=== PATIENT | male | born 1955 | race Hispanic/Latino ===

== ENCOUNTER 2017-07-30 09:47 | Observation (INO) | payer BC ==
[2017-07-30 09:49] VITALS: BMI 26.5
--- NOTE | 2017-07-30 10:38 | ED PDOC ---
HPI: Chest Pain Time Seen by Provider: 07/30/17 10:05 Chief Complaint (Nursing): Chest Pain Chief Complaint (Provider): Chest Tightness History Per: Patient History/Exam Limitations: no limitations Onset/Duration Of Symptoms: Days (x2) Current Symptoms Are (Timing): Still Present Quality: Tightness Additional Complaint(s): Noble Green Jr is a 62 year old male with a past medical history of asthma, atrial fibrillation, and hypertension, who presents complaining of chest tightness since yesterday. Reports tightness is constant, and associated with non-productive cough. Denies fever, leg swelling, or calf pain. No recent long distance travel. Reports he took his Cardizem and Xarelto today as prescribed. PMD: Provider TBD Past Medical History Reviewed: Historical Data, Nursing Documentation, Vital Signs Vital Signs: Last Vital Signs Temp 98.8 F 07/30/17 10:25 Pulse 83 07/30/17 10:17 Resp 14 07/30/17 10:17 BP 120/77 07/30/17 10:17 Pulse Ox 96 07/30/17 15:37 - Medical History PMH: Asthma, Atrial Fibrillation, HTN - Surgical History Surgical History: No Surg Hx - Family History Family History: States: Unknown Family Hx - Social History Current smoker - smoking cessation education provided: No Alcohol: Social Drugs: Denies - Allergies Allergies/Adverse Reactions: Allergies Allergy/AdvReac Type Severity Reaction Status Date / Time No Known Allergies Allergy Verified 06/19/17 09:00 SURYA Risk Score for UA/NSTEMI - SURYA Risk Score Age > 64: NO 3 or more CAD Risk Factors: YES Known CAD (Stenosis greater than 50%): NO Aspirin use in past 7 days: NO Severe Angina: NO EKG ST changes greater than 0.5mm: NO Positive Cardiac Marker: NO SURYA Score: 1 Risk %: 5% Review of Systems ROS Statement: Except As Marked, All Systems Reviewed And Found Negative Constitutional: Negative for: Fever Cardiovascular: Positive for: Other (chest tightness). Negative for: Chest Pain Respiratory: Positive for: Cough. Negative for: Sputum Musculoskeletal: Negative for: Other (calf pain, leg swelling) Physical Exam - Reviewed Nursing Documentation Reviewed: Yes Vital Signs Reviewed: Yes - Physical Exam Appears: Positive for: Non-toxic, No Acute Distress Head Exam: Positive for: ATRAUMATIC, NORMAL INSPECTION, NORMOCEPHALIC Skin: Positive for: Normal Color, Warm, Dry Eye Exam: Positive for: EOMI, Normal appearance, PERRL Neck: Positive for: Normal, Painless ROM, Supple Cardiovascular/Chest: Positive for: Regular Rate, Rhythm, Chest Non Tender. Negative for: Murmur Respiratory: Positive for: Normal Breath Sounds. Negative for: Accessory Muscle Use, Rhonchi, Wheezing, Respiratory Distress Gastrointestinal/Abdominal: Positive for: Normal Exam, Soft. Negative for: Tenderness Extremity: Positive for: Normal ROM. Negative for: Pedal Edema, Calf Tenderness , Deformity Neurologic/Psych: Positive for: Alert, Oriented (x3) - Laboratory Results Result Diagrams: 07/30/17 11:59 07/30/17 13:24 - ECG O2 Sat by Pulse Oximetry: 96 (RA) Pulse Ox Interpretation: Normal Medical Decision Making Medical Decision Making: Initial Impression: Asthma, pulmonary embolism, bronchitis, pneumonia Time: 10:32 Initial Plan: --EKG --CMP --Troponin I --CBC w/ differential --PTT --Prothrombin time --Blood culture --Chest x-ray --Pending CT Angio Chest [PE protocol] --Reevaluation Time: 12:31 CHEST X-RAY: FINDINGS: LUNGS: No active pulmonary disease. PLEURA: No significant pleural effusion identified, no pneumothorax apparent. CARDIOVASCULAR: No radiographic findings to suggest acute or significant cardiovascular disease. OSSEOUS STRUCTURES: No significant abnormalities. VISUALIZED UPPER ABDOMEN: Normal. OTHER FINDINGS: None. IMPRESSION: No active disease. Labs reviewed: Troponin negative. PTT is 23.3. Otherwise labs are wnl. Time: 15:24 CT ANGIO CHEST: FINDINGS: PULMONARY ARTERIES: Unremarkable. No pulmonary embolism. AORTA: No acute findings. No thoracic aortic aneurysm. LUNGS: Unremarkable. No nodule, mass or pulmonary consolidation. PLEURAL SPACES: Unremarkable. No effusion or pneuomothorax. HEART: Cardiac size appears upper limits of normal. No significant pericardial effusion. LYMPH NODES: No lymphadenopathy. BONES, CHEST WALL: Unremarkable. No fracture or destructive lesion OTHER FINDINGS: Small hiatal hernia is encountered. IMPRESSION: Unremarkable CT pulmonary angiogram. No pulmonary embolus. No definite infiltrate, pleural effusion or pneumothorax. Cardiac size at upper limits normal. Scribe Attestation: Documented by Inocencia Reyes, acting as a scribe for Apolonia Huang MD Provider Scribe Attestation: All medical record entries made by the Scribe were at my direction and personally dictated by me. I have reviewed the chart and agree that the record accurately reflects my personal performance of the history, physical exam, medical decision making, and the department course for this patient. I have also personally directed, reviewed, and agree with the discharge instructions and disposition. Disposition - Disposition Forms: [employer] (Filipino)
[2017-07-30 12:06] LABS: BASO % 0.3 % (0.0-2.0); EOS # 0.1 K/uL (0.0-0.7); EOS % 1.2 % (0.0-4.0); HEMOGLOBIN 13.7 g/dL (12.0-18.0); LYMPH # 0.5 K/uL (1.0-4.3); LYMPH % 5.7 % (20.0-40.0); MEAN CELL VOLUME 87.7 fl (80.0-94.0); MEAN CORPUSCULAR HGB CONC 33.1 g/dL (33.0-37.0); MEAN PLATELET VOLUME 9.6 fl (7.2-11.7); MONO # 0.7 K/uL (0.0-0.8); MONO % 8.3 % (0.0-10.0); NEUT # 6.8 K/uL (1.8-7.0); NEUT % 84.5 % (50.0-75.0); NRBC % 0.1 % (0.0-0.0); PLATELET COUNT 222 K/uL (130-400); RBC 4.71 Mil/uL (4.40-5.90); RED CELL DISTRIBUTION WIDTH 13.9 % (11.5-14.5); WHITE BLOOD COUNT 8.1 K/uL (4.8-10.8)
[2017-07-30 12:18] LABS: PARTIAL THROMBOPLASTIN TIME 23.3 Seconds (25.6-37.1); PROTHROMBIN TIME 11.3 Seconds (9.8-13.1)
--- NOTE | 2017-07-30 12:33 | RAD ---
HISTORY: Chest tightness portable COMPARISON: No prior. FINDINGS: LUNGS: No active pulmonary disease. PLEURA: No significant pleural effusion identified, no pneumothorax apparent. CARDIOVASCULAR: No radiographic findings to suggest acute or significant cardiovascular disease. OSSEOUS STRUCTURES: No significant abnormalities. VISUALIZED UPPER ABDOMEN: Normal. OTHER FINDINGS: None. IMPRESSION: No active disease.
[2017-07-30] MEDS ORDERED: Iodixanol 320 MG/ML 100 ML BOTTLE IV ONE (12:36)
[2017-07-30] MEDS ORDERED: Sodium Chloride 0.9% 50 ML IV ONE (12:36)
[2017-07-30 13:50] LABS: ALB/GLOB RATIO 1.2 (1.0-2.1); ALBUMIN 4.4 g/dL (3.5-5.0); ALT/SGPT 34 U/L (21-72); AST/SGOT 40 U/L (17-59); BLOOD UREA NITROGEN 17 mg/dl (9-20); CALCIUM 9.2 mg/dL (8.4-10.2); GFR AFRICAN-AMERICAN > 60; GFR NON-AFRICAN AMERICAN > 60
[2017-07-30 14:07] LABS: LYMPHOCYTE 9 % (20-50); MONOCYTE 8 % (0-10); NEUTROPHIL 83 % (42-75); PLATELET ESTIMATE NORMAL (NORMAL); TOTAL CELLS COUNTED 100
--- NOTE | 2017-07-30 15:25 | CT ---
PROCEDURE: CT Chest with contrast (Pulmonary Angiogram) HISTORY: Chest tightness, a fib COMPARISON: Portable chest 07/30/2017. TECHNIQUE: Axial computed tomography images were obtained of the chest in the pulmonary arterial phase of enhancement. Coronal and sagittal reformatted images were created and reviewed. Intravenous contrast dose: Visipaque 320, 99 cc Radiation dose: Total exam DLP = 442.31 mGy-cm. This CT exam was performed using one or more of the following dose reduction techniques: Automated exposure control, adjustment of the mA and/or kV according to patient size, and/or use of iterative reconstruction technique. FINDINGS: PULMONARY ARTERIES: Unremarkable. No pulmonary embolism. AORTA: No acute findings. No thoracic aortic aneurysm. LUNGS: Unremarkable. No nodule, mass or pulmonary consolidation. PLEURAL SPACES: Unremarkable. No effusion or pneuomothorax. HEART: Cardiac size appears upper limits of normal. No significant pericardial effusion. LYMPH NODES: No lymphadenopathy. BONES, CHEST WALL: Unremarkable. No fracture or destructive lesion OTHER FINDINGS: Small hiatal hernia is encountered. IMPRESSION: Unremarkable CT pulmonary angiogram. No pulmonary embolus. No definite infiltrate, pleural effusion or pneumothorax. Cardiac size at upper limits normal.
[2017-07-30] MEDS ORDERED: Albuterol-Ipratrop 3 mg / 0.5 (3 ml) UD INH STA (16:21)
[2017-07-30] MEDS ORDERED: Albuterol-Ipratrop 3 mg / 0.5 (3 ml) UD ONE (16:48)
--- NOTE | 2017-07-30 17:23 | CP.PCM.HP ---
History of Present Illness - History of Present Illness History of Present Illness: 62 yo ,m, PMhx/o Asthma, HTN, Afib (06/2017) presents to ED c/o chest tightness started 2 days ago associated with occs dry cough that sometimes is productive yellowish color since the beginning of July. Patient reports that chest tightness started yesterday about 5 pm and improved with Qvar 2 puff, but today it started again in the morning while he was buying his groceries and it was not alleviated with Rubitussin and Qvar spray and it was associated with mild SOB and lightheadedness. He denies chest pain, palpitation, headache, dizziness, weakness, hxo DVT, immobilization. Pt reports he saw Metal Polisher about 2 weeks ago and he was advised to use Qvar TID. He reports he never has seen a Reel Cart Operator before in the past and never had PFT test done. He denies hx/o smoker but states that smoke when he was a teenager. PMD: CF. last visit 06/2017 Dr Hurley. Allergies: NKDA MEds: Diltiazem 120 mg daily, Xarelto 20 mg QPM, Qvar 1 puff Q12, Albuterol spuff not using now. Fhx: noncontributory PShx: +ETOH occs, neg rect drugs, former smoker when teenager at age 19 , 5 cig/ day x 1 year ED Course VS: normal PD: Lungs CTA, no rhonchi, no wheezing, no rales Labs: cbc, cmp nl.troponin neg x 1 Imaging: CT angio chest: no pulmonary embolism. normal CXR: no active disease. EKG sinus rhtym with PAC Treatment: Duoneb Present on Admission - Present on Admission Any Indicators Present on Admission: No History of DVT/PE: No History of Uncontrolled Diabetes: No Urinary Catheter: No Decubitus Ulcer Present: No Review of Systems - Constitutional Constitutional: As Per HPI - Cardiovascular Cardiovascular: As Per HPI Additional comments: chest tightness - Respiratory Respiratory: As Per HPI, Cough, Dyspnea Past Patient History - Past Social History Alcohol: Social Drugs: Denies - CARDIAC Hx Atrial Fibrillation: Yes Hx Hypertension: Yes - PULMONARY Hx Asthma: Yes - PSYCHIATRIC Hx Substance Use: No - SURGICAL HISTORY Hx Surgeries: No - ANESTHESIA Hx Anesthesia: No Meds Allergies/Adverse Reactions: Allergies Allergy/AdvReac Type Severity Reaction Status Date / Time No Known Allergies Allergy Verified 06/19/17 09:00 Physical Exam - Constitutional Appears: No Acute Distress - Head Exam Head Exam: ATRAUMATIC, NORMOCEPHALIC - Eye Exam Eye Exam: Normal appearance - ENT Exam ENT Exam: Mucous Membranes Moist - Neck Exam Neck exam: Positive for: Normal Inspection - Respiratory Exam Respiratory Exam: Clear to Auscultation Bilateral. absent: Rales, Rhonchi, Wheezes, Stridor - Cardiovascular Exam Cardiovascular Exam: REGULAR RHYTHM, +S1, +S2 - GI/Abdominal Exam GI & Abdominal Exam: Normal Bowel Sounds, Soft. absent: Guarding, Rebound - Extremities Exam Extremities exam: Positive for: normal inspection. Negative for: pedal edema - Neurological Exam Neurological exam: Alert, Oriented x3 - Psychiatric Exam Psychiatric exam: Normal Affect, Normal Mood - Skin Skin Exam: Rash Additional comments: B/L internal side of arms with erythematous chronic rash not scaly. Results - Vital Signs Recent Vital Signs: Last Vital Signs Temp 98.8 F 07/30/17 10:25 Pulse 82 07/30/17 10:17 Resp 14 07/30/17 10:17 BP 120/77 07/30/17 10:17 Pulse Ox 96 07/30/17 15:45 - Labs Result Diagrams: 07/30/17 11:59 07/30/17 13:24 Labs: Laboratory Results - last 24 hr 07/30/17 07/30/17 07/30/17 11:59 11:59 13:24 WBC 8.1 RBC 4.71 Hgb 13.7 Hct 41.3 MCV 87.7 MCH 29.0 MCHC 33.1 RDW 13.9 Plt Count 222 MPV 9.6 Neut % (Auto) 84.5 H Lymph % (Auto) 5.7 L [place] % (Auto) 8.3 Eos % (Auto) 1.2 Baso % (Auto) 0.3 Neut # 6.8 Lymph # 0.5 L [place] # 0.7 Eos # 0.1 Baso # 0.0 Neutrophils % (Manual) 83 H Lymphocytes % (Manual) 9 L Monocytes % (Manual) 8 Platelet Estimate Normal RBC Morphology Normal PT 11.3 INR 1.0 APTT 23.3 L Sodium 143 Potassium 3.8 Chloride 103 Carbon Dioxide 29 Anion Gap 15 BUN 17 Creatinine 0.7 L Est GFR ( Amer) > 60 Est GFR (Non-Af Amer) > 60 Random Glucose 93 Calcium 9.2 Total Bilirubin 0.6 AST 40 ALT 34 Alkaline Phosphatase 75 Troponin I 0.0120 Total Protein 8.0 Albumin 4.4 Globulin 3.6 Albumin/Globulin Ratio 1.2 Assessment & Plan - Assessment and Plan (Free Text) Plan: 62 yo ,m, PMhx/o Asthma, HTN, Afib (06/2017) presents to ED c/o chest tightness started 2 days ago, admitted for chest tightness for observation in telemetry Assessment/Plan 1) Chest tightness -no chest pain, admited to r/o ACS -Admit telemetry -EKG sinus rhythm, troponin x 1 neg -f/u trop x 2, ECG in the morning -Duoneb PRN SOB -Tylenol PRN pain 2) URI -possible viral etiology -symptomatic treatment -CXR normal -CT chest no infiltrated 3) Asthma exacerbation -recent URI, chest tightness -no wheezing, but pt was treated in Ed and has been using Qvar at home. -Qvar ordered for tomorrow morning -Duoneb q4h PRN for SOB 4) Hx/o Atrial Fibrillation -1 episode of A fib 06/25/17 -on sinus rhytm today, asymptomatic -Continue Xarelto 20 mg QHS 5) HTN -c/w Diltiazem 6) DVT prophylaxis -Pt on Xarelto
--- NOTE | 2017-07-30 17:23 | CP.PCM.PN ---
Objective - Vital Signs/Intake and Output Vital Signs (last 24 hours): Temp Pulse Resp BP Pulse Ox 98.8 F 82 14 120/77 96 07/30/17 10:25 07/30/17 10:17 07/30/17 10:17 07/30/17 10:07/30/17 15:45 - Medications Medications: Current Medications Acetaminophen (Tylenol 325mg Tab) 650 mg PO Q6 PRN PRN Reason: Pain, moderate (4-7) Albuterol/Ipratropium (Duoneb 3 Mg/0.5 Mg (3 Ml) Ud) 3 ml INH RQ4 PRN PRN Reason: Shortness of Breath Home Med (Diltiazem Hcl [Diltiazem Er]) 120 mg PO DAILY ALISON Rivaroxaban (Xarelto) 20 mg PO QPM ALISON PRN Reason: Protocol - Labs Labs: 07/30/17 11:59 07/30/17 13:24 PT 11.3 Seconds (9.8-13.1) 07/30/17 11:59 INR 1.0 (0.9-1.2) 07/30/17 11:59 APTT 23.3 Seconds (25.6-37.1) L 07/30/17 11:59
[2017-07-30] MEDS: Albuterol-Ipratrop 3 mg / 0.5 (3 ml) UD INH PRN (23:19)
[2017-07-31 06:17] LABS: ALB/GLOB RATIO 1.2 (1.0-2.1); ALT/SGPT 36 U/L (21-72); AST/SGOT 35 U/L (17-59); BLOOD UREA NITROGEN 14 mg/dl (9-20); CALCIUM 9.1 mg/dL (8.4-10.2); GFR AFRICAN-AMERICAN > 60; GFR NON-AFRICAN AMERICAN > 60; HDL CHOLESTEROL 62 MG/DL (30-70)
[2017-07-31 06:24] LABS: BASO % 0.5 % (0.0-2.0); EOS % 0.5 % (0.0-4.0); HEMOGLOBIN 13.5 g/dL (12.0-18.0); LYMPH # 0.7 K/uL (1.0-4.3); LYMPH % 11.6 % (20.0-40.0); MEAN CELL VOLUME 86.8 fl (80.0-94.0); MEAN CORPUSCULAR HEMOGLOBIN 29.2 pg (27.0-31.0); MEAN CORPUSCULAR HGB CONC 33.6 g/dL (33.0-37.0); MEAN PLATELET VOLUME 10.2 fl (7.2-11.7); MONO % 15.8 % (0.0-10.0); NEUT # 4.5 K/uL (1.8-7.0); NEUT % 71.6 % (50.0-75.0); NRBC % 0.3 % (0.0-0.0); RBC 4.61 Mil/uL (4.40-5.90); RED CELL DISTRIBUTION WIDTH 13.9 % (11.5-14.5); WHITE BLOOD COUNT 6.2 K/uL (4.8-10.8)
[2017-07-31 06:28] LABS: LDL CHOLESTEROL 98 mg/dL (0-129)
[2017-07-31] MEDS ORDERED: BECLOMETHASONE DIPROPIONATE IH SCH (08:00)
[2017-07-31] MEDS ORDERED: diltiaZEM 120 mg/24 Hours CD Cap PO SCH (09:00)
[2017-07-31] MEDS: Albuterol-Ipratrop 3 mg / 0.5 (3 ml) UD INH PRN (09:06)
[2017-07-31 12:01] VITALS: O2SAT 94
--- NOTE | 2017-07-31 14:32 | CP.PCM.DIS ---
Provider - Provider Date of Admission: 07/30/17 16:00 Attending physician: Anna Danielle MD Time Spent in preparation of Discharge (in minutes): 30 Hospital Course - Lab Results Lab Results: Micro Results 07/30/17 11:15 Blood-Venous Blood Culture - Preliminary NO GROWTH AFTER 24 HOURS 07/30/17 11:40 Blood-Venous Blood Culture - Preliminary NO GROWTH AFTER 24 HOURS Most Recent Lab Values WBC 6.2 K/uL (4.8-10.8) 07/31/17 04:25 RBC 4.61 Mil/uL (4.40-5.90) 07/31/17 04:25 Hgb 13.5 g/dL (12.0-18.0) 07/31/17 04:25 Hct 40.1 % (35.0-51.0) 07/31/17 04:25 MCV 86.8 fl (80.0-94.0) 07/31/17 04:25 MCH 29.2 pg (27.0-31.0) 07/31/17 04:25 MCHC 33.6 g/dL (33.0-37.0) 07/31/17 04:25 RDW 13.9 % (11.5-14.5) 07/31/17 04:25 Plt Count 192 K/uL (130-400) 07/31/17 04:25 MPV 10.2 fl (7.2-11.7) 07/31/17 04:25 Neut % (Auto) 71.6 % (50.0-75.0) 07/31/17 04:25 Lymph % (Auto) 11.6 % (20.0-40.0) L 07/31/17 04:25 [place] % (Auto) 15.8 % (0.0-10.0) H 07/31/17 04:25 Eos % (Auto) 0.5 % (0.0-4.0) 07/31/17 04:25 Baso % (Auto) 0.5 % (0.0-2.0) 07/31/17 04:25 Neut # 4.5 K/uL (1.8-7.0) 07/31/17 04:25 Lymph # 0.7 K/uL (1.0-4.3) L 07/31/17 04:25 [place] # 1.0 K/uL (0.0-0.8) H 07/31/17 04:25 Eos # 0.0 K/uL (0.0-0.7) 07/31/17 04:25 Baso # 0.0 K/uL (0.0-0.2) 07/31/17 04:25 Neutrophils % (Manual) 83 % (42-75) H 07/30/17 11:59 Lymphocytes % (Manual) 9 % (20-50) L 07/30/17 11:59 Monocytes % (Manual) 8 % (0-10) 07/30/17 11:59 Platelet Estimate Normal (NORMAL) 07/30/17 11:59 RBC Morphology Normal (NORMAL) 07/30/17 11:59 PT 11.3 Seconds (9.8-13.1) 07/30/17 11:59 INR 1.0 (0.9-1.2) 07/30/17 11:59 APTT 23.3 Seconds (25.6-37.1) L 07/30/17 11:59 Sodium 141 mmol/l (132-148) 07/31/17 04:25 Potassium 3.7 MMOL/L (3.6-5.0) 07/31/17 04:25 Chloride 102 mmol/L (98-107) 07/31/17 04:25 Carbon Dioxide 29 mmol/L (22-30) 07/31/17 04:25 Anion Gap 14 (10-20) 07/31/17 04:25 BUN 14 mg/dl (9-20) 07/31/17 04:25 Creatinine 0.8 mg/dl (0.8-1.5) 07/31/17 04:25 Est GFR ( Amer) > 60 07/31/17 04:25 Est GFR (Non-Af Amer) > 60 07/31/17 04:25 Random Glucose 93 mg/dL (75-110) 07/31/17 04:25 Calcium 9.1 mg/dL (8.4-10.2) 07/31/17 04:25 Total Bilirubin 0.6 mg/dl (0.2-1.3) 07/31/17 04:25 AST 35 U/L (17-59) 07/31/17 04:25 ALT 36 U/L (21-72) 07/31/17 04:25 Alkaline Phosphatase 68 U/L (38-126) 07/31/17 04:25 Troponin I 0.0190 ng/mL (0.00-0.120) 07/31/17 04:25 Total Protein 7.4 G/DL (6.3-8.2) 07/31/17 04:25 Albumin 4.0 g/dL (3.5-5.0) 07/31/17 04:25 Globulin 3.4 gm/dL (2.2-3.9) 07/31/17 04:25 Albumin/Globulin Ratio 1.2 (1.0-2.1) 07/31/17 04:25 Triglycerides 52 mg/DL (0-149) 07/31/17 04:25 Cholesterol 181 mg/dL (0-199) 07/31/17 04:25 LDL Cholesterol Direct 98 mg/dL (0-129) 07/31/17 04:25 HDL Cholesterol 62 MG/DL (30-70) 07/31/17 04:25 Influenza Typ A,B (EIA) Pos for influenza b (NEGATIVE) H 07/31/17 12:30 - Hospital Course Hospital Course: 62 yo ,m, PMhx/o Asthma, HTN, Afib (06/2017) presents to ED c/o 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 Patient reports that chest tightness started yesterday about 5 pm and improved with Qvar 2 puff, but today it started again in the morning while he was buying his groceries and it was not alleviated with Rubitussin and Qvar spray and it was associated with mild SOB and lightheadedness. He denies chest pain, palpitation, headache, dizziness, weakness, hxo DVT, immobilization. Pt reports he saw Bushing Press Operator about 2 weeks ago and he was advised to use Qvar TID. He reports he never has seen a Extruding Press Adjuster before in the past and never had PFT test done. He denies hx/o smoker but states that smoke when he was a teenager. Patient admitted for observation in telemetry, no chest pain during hospitalization, EKG on admission no acute changes,sinus rhythm, trop x 3 neg. Chest tightness resolved with duoneb PRN for SOB needed one dose last night. CXR on admission no infiltrated, no leukocytosis. Patient with occs dry cough and had fever this morning 101 that subsided with tylenol. Influenza test B positive. Patient with Hx/o A fib, Asthma discharged with Tamiflu 75 mg BID x 5 days. EKG before discharge pending reports and discussed with Dr Ham Arredondo who agree to discharge patient. Patient reports to have Albuterol inh and Q ashlee at home and does not need refill. Instructed how to use inhaler pump and advised also to have microbiology teacher follow up Will have follow up in [facility] Dr Gerardo 08/07/17 1:40 pm Diagnosis 1) Chest tightness -resolved -EKG sinus rhythm, troponin x 3 neg -Duoneb PRN SOB 2) Viral URI secondary to Influenza -Influenza B positive -Tamiflu 75 mg BID x 5 days 3) Asthma exacerbation resolved -c/w Albuterol and Qvar 4) Hx/o Atrial Fibrillation -1 episode of A fib 06/25/17 -on sinus rhytm , asymptomatic -Continue Xarelto 20 mg QHS 5) HTN -c/w Diltiazem Discharge Exam - Head Exam Head Exam: ATRAUMATIC, NORMOCEPHALIC - Eye Exam Eye Exam: Normal appearance - Respiratory Exam Respiratory Exam: NORMAL BREATHING PATTERN. absent: Rales, Rhonchi - Cardiovascular Exam Cardiovascular Exam: REGULAR RHYTHM, +S1, +S2 - GI/Abdominal Exam GI & Abdominal Exam: Normal Bowel Sounds, Soft. absent: Guarding, Rebound - Extremities Exam Extremities exam: normal inspection - Neurological Exam Neurological exam: Alert, Oriented x3 - Psychiatric Exam Psychiatric exam: Normal Affect, Normal Mood - Skin Skin Exam: Intact Discharge Plan - Discharge Medications Prescriptions: Oseltamivir Phosphate [Tamiflu] 75 mg PO BID 5 Days #10 capsule - Follow Up Plan Condition: GOOD Disposition: HOME/ ROUTINE Additional Instructions: - Follow up [facility] 08/07/2016 at 1:[address] Humaira Willis -Follow up with [place] Press Operator Dr William Zhang in 10 days -Follow up Hand Braille Transcriber in [address] Jenkins
[2017-07-31 16:04] VITALS: BP 136/82; PULSE 71; RESP 14; TEMP 98.6
--- NOTE | 2017-08-01 11:23 | CARD ---
APPROVED REPORT EKG Measurement Heart [id number] <Conclusion> Sinus rhythm with premature atrial complexes T wave abnormality, consider inferior ischemia T wave abnormality, consider anterior ischemia Abnormal ECG
--- NOTE | 2017-08-01 11:41 | CARD ---
APPROVED REPORT EKG Measurement Heart [id number] <Conclusion> Sinus rhythm with premature atrial complexes in a pattern of bigeminy T wave abnormality, consider lateral ischemia Abnormal ECG
== END 2017-07-31 17:47 | disposition home or self-care (01) ==
LOC: H.ER 09:47 → H.ERHOLD 16:00 → H.TEL 19:04
PROVIDERS: ADMIT Family Medicine Geriatric Medicine; ATTEND Family Medicine Geriatric Medicine
DX: J45.901 Unspecified asthma with (acute) exacerbation (principal); J10.1 Influenza due to other identified influenza virus with other respiratory manifestations; Z79.01 Long term (current) use of anticoagulants; Z87.891 Personal history of nicotine dependence; R07.89 Other chest pain; I10 Essential (primary) hypertension; I48.91 Unspecified atrial fibrillation
CPT/HCPCS: 36415; 71045; 71275; 80053; 80061; 84484; 85025; 85610; 85730; 87040; 87804; 93005; 94640; 99285; G0378; Q9967

== ENCOUNTER 2017-11-18 12:10 | Observation (INO) | payer BC ==
[2017-11-18 12:36] VITALS: BMI 26.1
[2017-11-18] MEDS ORDERED: Sodium Chloride 0.9% 1,000 ML IV STA (13:15)
[2017-11-18 13:47] LABS: BASO % 0.1 % (0.0-2.0); HEMOGLOBIN 13.8 g/dL (12.0-18.0); LYMPH # 1.2 K/uL (1.0-4.3); LYMPH % 7.5 % (20.0-40.0); MEAN CELL VOLUME 86.5 fl (80.0-94.0); MEAN CORPUSCULAR HEMOGLOBIN 29.3 pg (27.0-31.0); MEAN CORPUSCULAR HGB CONC 33.9 g/dL (33.0-37.0); MEAN PLATELET VOLUME 9.5 fl (7.2-11.7); MONO # 0.8 K/uL (0.0-0.8); NEUT # 14.5 K/uL (1.8-7.0); NEUT % 87.4 % (50.0-75.0); NRBC % 0.1 % (0.0-0.0); PLATELET COUNT 281 K/uL (130-400); RBC 4.71 Mil/uL (4.40-5.90); RED CELL DISTRIBUTION WIDTH 13.8 % (11.5-14.5); WHITE BLOOD COUNT 16.6 K/uL (4.8-10.8)
[2017-11-18 13:54] LABS: ALBUMIN 4.3 g/dL (3.5-5.0); ALT/SGPT 38 U/L (21-72); AST/SGOT 42 U/L (17-59); BLOOD UREA NITROGEN 20 mg/dl (9-20); CALCIUM 9.5 mg/dL (8.4-10.2); GFR AFRICAN-AMERICAN > 60; GFR NON-AFRICAN AMERICAN > 60; LIPASE 47 U/L (23-300)
[2017-11-18 13:55] LABS: URINE BILIRUBIN NEGATIVE (NEGATIVE); URINE BLOOD NEGATIVE (NEGATIVE); URINE CLARITY CLOUDY (Clear); URINE COLOR YELLOW (YELLOW); URINE GLUCOSE (UA) NEG (Normal); URINE LEUKOCYTE ESTERASE NEG Leu/uL (Negative); URINE PROTEIN NEGATIVE (NEGATIVE); URINE UROBILINOGEN 0.2-1.0 mg/dL (0.2-1.0)
[2017-11-18 14:37] LABS: BANDS 1 % (0-2); LYMPHOCYTE 4 % (20-50); MONOCYTE 4 % (0-10); NEUTROPHIL 91 % (42-75); PLATELET ESTIMATE NORMAL (NORMAL); TOTAL CELLS COUNTED 100
--- NOTE | 2017-11-18 14:52 | ED PDOC ---
HPI: Abdomen Time Seen by Provider: 11/18/17 12:51 Chief Complaint (Nursing): Abdominal Pain Chief Complaint (Provider): Abdominal Pain History Per: Patient History/Exam Limitations: no limitations Onset/Duration Of Symptoms: Days (x1), Sudden Onset Current Symptoms Are (Timing): Still Present Location Of Pain/Discomfort: LLQ Associated Symptoms: Nausea, Back Pain. denies: Fever, Vomiting, Diarrhea Additional Complaint(s): Noble Green Jr is a 62 year old male with a past medical history of hypertension, atrial fibrillation, and asthma who is presenting to the ED with complaints of sudden onset constant left flank pain that is radiating to the left lower quadrant, onset last night. Patient states that he felt a similar pain one month ago but it resolved after one hour. He reports nausea but denies any diarrhea, fever, melena, hematochezia, h/o renal stones, or vomiting. PMD: Yosef Zuñiga Past Medical History Reviewed: Historical Data, Nursing Documentation, Vital Signs Vital Signs: Last Vital Signs Temp 96.8 F L 11/18/17 12:36 Pulse 75 11/18/17 12:36 Resp 20 11/18/17 12:36 BP 150/99 H 11/18/17 12:36 Pulse Ox 100 11/18/17 14:52 - Medical History PMH: Asthma, Atrial Fibrillation, HTN Denies: Chronic Kidney Disease - Surgical History Surgical History: No Surg Hx - Family History Family History: States: Unknown Family Hx - Social History Current smoker - smoking cessation education provided: No Alcohol: None Drugs: Denies - Home Medications Home Medications: Ambulatory Orders Medication Instructions Recorded Albuterol HFA [Ventolin HFA 90 2 puff IH Q4H PRN 07/30/17 mcg/actuation (8 g)] Beclomethasone Dipropionate [Qvar 1 puff IH Q12H 07/30/17 80 mcg] Diltiazem HCl [Diltiazem ER] 120 mg PO DAILY 07/30/17 Multivitamin [Multi-Vitamin Daily] 1 tab PO DAILY 07/30/17 Pravastatin Sodium [Pravachol] 80 mg PO HS 07/30/17 Rivaroxaban [Xarelto] 20 mg PO QPM 07/30/17 Umeclidinium [place] [Incruse 1 puff IH DAILY 07/30/17 Ellipta] hydroCHLOROthiazide [Hydrodiuril] 25 mg PO DAILY 07/30/17 Oseltamivir Phosphate [Tamiflu] 75 mg PO BID 5 Days #10 capsule 07/31/17 - Allergies Allergies/Adverse Reactions: Allergies Allergy/AdvReac Type Severity Reaction Status Date / Time cat dander Allergy SHORTNESS Verified 07/31/17 05:28 OF BREATH oyster extract Allergy NAUSEA Verified 07/31/17 05:28 ragweed pollen Allergy SHORTNESS Verified 07/31/17 05:28 OF BREATH Review of Systems ROS Statement: Except As Marked, All Systems Reviewed And Found Negative Constitutional: Negative for: Fever Gastrointestinal: Positive for: Nausea, Abdominal Pain. Negative for: Vomiting , Diarrhea, Melena, Hematochezia Musculoskeletal: Negative for: Back Pain Skin: Positive for: Rash (+h/o psoriasis, states that he currently has an exacerbation of his psoriasis, he has red rash scattered throught his body) Physical Exam - Reviewed Nursing Documentation Reviewed: Yes Vital Signs Reviewed: Yes - Physical Exam Comments: GENERAL APPEARANCE: Patient is awake, alert, oriented x 3, in mild painful distress. SKIN: Warm, dry; (-) cyanosis, (+) diffuse scattered erythematous circular lesions. EYES: (-) conjunctival pallor, (-) scleral icterus. ENMT: Mucous membranes moist. NECK: (-) tenderness, (-) stiffness, (-) lymphadenopathy. CHEST AND RESPIRATORY: (-) rales, (-) rhonchi, (-) wheezes; breath sounds equal bilaterally. HEART AND CARDIOVASCULAR: (-) irregularity; (-) murmur, (-) gallop. ABDOMEN AND GI: (-) distention. Bowel sounds active; (+) tenderness to left flank, (-) guarding, (-) rebound, (-) palpable masses, (+) left CVA tenderness. EXTREMITIES: (-) deformity, (-) edema, (+) distal pulses. NEURO AND PSYCH: Mental status as above; (-) focal findings. - Laboratory Results Result Diagrams: 11/18/17 13:30 11/18/17 13:30 - ECG O2 Sat by Pulse Oximetry: 100 (RA) Pulse Ox Interpretation: Normal Medical Decision Making Medical Decision Making: Time: 13:14 Impression: Rule out renal colic, and consider diverticulitis Plan: --CT Abd/Pelvis --CMP --Lipase --CBC --IV Fluids --Toradol 30 mg IVP --Zofran 4 mg IVP --Urine Culture --Urinalysis Lab results reviewed : wbc 16, with L shift, UA (-) blood / leuks / nitrates CT A/P w/o PO/IV CONTRAST: FINDINGS: LOWER THORAX: Unremarkable. LIVER: Unremarkable. No gross lesion or ductal dilatation. GALLBLADDER AND BILE DUCTS: Unremarkable. PANCREAS: Unremarkable. No gross lesion or ductal dilatation. SPLEEN: Unremarkable. ADRENALS: Unremarkable. No mass. KIDNEYS AND URETERS: Acute left hydronephrosis with perinephric edema and obstructive calculus in the distal left ureter measuring 1 mm.. No solid mass. VASCULATURE: Unremarkable. No aortic aneurysm. BOWEL: Unremarkable. No obstruction. No gross mural thickening. APPENDIX: Unremarkable. Normal appendix. PERITONEUM: Unremarkable. No free fluid. No free air. LYMPH NODES: Unremarkable. No enlarged lymph nodes. BLADDER: Unremarkable. REPRODUCTIVE: Unremarkable. BONES: No acute fracture. OTHER FINDINGS: None. IMPRESSION: Acute left hydronephrosis.Please see discussion above. On re-evaluation, patient reports improvement of symptoms, denies any pain at this time. On exam, patient remains AAOx3, in no acute distress, abdomen soft, non-tender, no flank or CVA tenderness. Diagnostic results d/w the patient in great detail. Diagnosis of L renal colic and L hydronephrosis d/w the patient. Based on history, exam and diagnostic results, plan will be for outpatient inpatient observation. Case d/w uro fiction and nonfiction prose writer Dr. Josue (as requested by FP resident Dr. Hurley), is agreeable to inpt observation, which the patient wants and is comfortable with. Case d/w FP resident Dr. Hurley, agrees with plan for inpt obs, will see patient in the ER. Patient states that he agrees with the plan and disposition. I have given the patient opportunity to ask any additional questions. Scribe Attestation: Documented by Luz Marina Collins, acting as a scribe for Jennifer Murray PA-C. Provider Scribe Attestation: All medical record entries made by the Scribe were at my direction and personally dictated by me. I have reviewed the chart and agree that the record accurately reflects my personal performance of the history, physical exam, medical decision making, and the department course for this patient. I have also personally directed, reviewed, and agree with the discharge instructions and disposition. Disposition - Clinical Impression Clinical Impression: Renal colic on left side, Hydronephrosis, left - Patient ED Disposition Is Patient to be Admitted: Yes Doctor Will See Patient In The: ED Counseled Patient/Family Regarding: Studies Performed, Diagnosis - Disposition Disposition Time: 13:45 Condition: STABLE Forms: Lootsie (Nigerien)
--- NOTE | 2017-11-18 15:21 | CT ---
PROCEDURE: CT Abdomen and Pelvis without intravenous contrast HISTORY: L flank pain, r/o renal colic COMPARISON: None. TECHNIQUE: Technique. Contrast dose: Radiation dose: Total exam DLP = mGy-cm. This CT exam was performed using one or more of the following dose reduction techniques: Automated exposure control, adjustment of the mA and/or kV according to patient size, and/or use of iterative reconstruction technique. FINDINGS: LOWER THORAX: Unremarkable. LIVER: Unremarkable. No gross lesion or ductal dilatation. GALLBLADDER AND BILE DUCTS: Unremarkable. PANCREAS: Unremarkable. No gross lesion or ductal dilatation. SPLEEN: Unremarkable. ADRENALS: Unremarkable. No mass. KIDNEYS AND URETERS: Acute left hydronephrosis with perinephric edema and obstructive calculus in the distal left ureter measuring 1 mm.. No solid mass. VASCULATURE: Unremarkable. No aortic aneurysm. BOWEL: Unremarkable. No obstruction. No gross mural thickening. APPENDIX: Unremarkable. Normal appendix. PERITONEUM: Unremarkable. No free fluid. No free air. LYMPH NODES: Unremarkable. No enlarged lymph nodes. BLADDER: Unremarkable. REPRODUCTIVE: Unremarkable. BONES: No acute fracture. OTHER FINDINGS: None. IMPRESSION: .Acute leon hydronephrosis.Please see discussion above.
[2017-11-18] MEDS: Sodium Chloride 0.9% 1,000 ML IV SCH (16:44)
[2017-11-18] MEDS ORDERED: Albuterol HFA 90 mcg/actuation (8 g) IH PRN (16:56)
[2017-11-18] MEDS ORDERED: BECLOMETHASONE DIPROPIONATE IH SCH (17:00)
--- NOTE | 2017-11-18 17:01 | CP.PCM.HP ---
History of Present Illness - History of Present Illness History of Present Illness: 62 yo ,m, PMhx/o Asthma, Afib (06/2017) presents to ED with left sided flank pain radiating to his left lower quadrant when he woke up this morning. He had a similar pain one week ago, but was not this intense. Describes pain as a 9/10 , was able to urinate freely without any difficulties. Denies any burning with urination or blood in urine. Has never had a kidney stone in the past. Denies any fever, chills, nausea, or vomiting. Pain is currently resolved after he received pain medication in the ER and is resting comfortably. PMD: CFH Allergies: NKDA PMH: Afib, hyperlipidemia, Psoriasis, Asthma MEds: Diltiazem 120 mg daily, Xarelto 20 mg QPM, Atorvastatin 20 mg, Qvar 1 puff Q12, Albuterol spuff not using now. Fhx: noncontributory PShx: +ETOH occs, neg rect drugs, former smoker when teenager at age 19 , 5 cig/ day x 1 year ED Course VS: normal - CT abdomen and pelvis: Show Acute left hydronephrosis with perinephric edema and obstructive calculi in left distal ureter measuring 1mm. - CBC: WBC: 16.6, Neut % 87.4, - U/A: Few budding yeast. Nitrate and Leukocyte esterase : Negative FULL CODE Present on Admission - Present on Admission Any Indicators Present on Admission: No Past Patient History - Past Medical History & Family History Past Medical History?: Yes - Past Social History Alcohol: None Drugs: Denies - CARDIAC Hx Atrial Fibrillation: Yes Hx Hypertension: Yes - PULMONARY Hx Asthma: Yes - NEUROLOGICAL Hx Neurological Disorder: No - HEENT Hx HEENT Problems: No - RENAL Hx Chronic Kidney Disease: No - ENDOCRINE/METABOLIC Hx Endocrine Disorders: No - HEMATOLOGICAL/ONCOLOGICAL Hx Blood Disorders: No - INTEGUMENTARY Hx Dermatological Problems: No - MUSCULOSKELETAL/RHEUMATOLOGICAL Hx Musculoskeletal Disorders: No Hx Falls: No - GASTROINTESTINAL Other/Comment: right abdominal hernia, colonscopy 1999 - GENITOURINARY/GYNECOLOGICAL Hx Genitourinary Disorders: No - PSYCHIATRIC Hx Psychophysiologic Disorder: No Hx Substance Use: No - SURGICAL HISTORY Hx Surgeries: No - ANESTHESIA Hx Anesthesia: Yes Hx Anesthesia Reactions: No Meds Allergies/Adverse Reactions: Allergies Allergy/AdvReac Type Severity Reaction Status Date / Time cat dander Allergy SHORTNESS Verified 07/31/17 05:28 OF BREATH oyster extract Allergy NAUSEA Verified 07/31/17 05:28 ragweed pollen Allergy SHORTNESS Verified 07/31/17 05:28 OF BREATH Physical Exam - Constitutional Appears: No Acute Distress - Head Exam Head Exam: NORMAL INSPECTION - Eye Exam Eye Exam: Normal appearance - ENT Exam ENT Exam: Mucous Membranes Moist - Neck Exam Neck exam: Positive for: Normal Inspection - Respiratory Exam Respiratory Exam: Clear to Auscultation Bilateral, NORMAL BREATHING PATTERN. absent: Rhonchi, Wheezes - Cardiovascular Exam Cardiovascular Exam: REGULAR RHYTHM, +S1, +S2 - GI/Abdominal Exam GI & Abdominal Exam: Normal Bowel Sounds, Soft. absent: Guarding, Rigid, Tenderness - Extremities Exam Extremities exam: Negative for: calf tenderness - Back Exam Back exam: NORMAL INSPECTION. absent: CVA tenderness (L), CVA tenderness (R) - Neurological Exam Neurological exam: Alert, CN II-XII Intact, Normal Gait, Oriented x3 - Skin Skin Exam: Normal Color, Warm Results - Vital Signs Recent Vital Signs: Last Vital Signs Temp 96.8 F L 11/18/17 12:36 Pulse 75 11/18/17 12:36 Resp 20 11/18/17 12:36 BP 150/99 H 11/18/17 12:36 Pulse Ox 100 11/18/17 15:54 - Labs Result Diagrams: 11/18/17 13:30 11/18/17 13:30 Labs: Laboratory Results - last 24 hr 11/18/17 11/18/17 11/18/17 13:30 13:30 13:30 WBC 16.6 H D RBC 4.71 Hgb 13.8 Hct 40.8 MCV 86.5 MCH 29.3 MCHC 33.9 RDW 13.8 Plt Count 281 MPV 9.5 Neut % (Auto) 87.4 H Lymph % (Auto) 7.5 L [place] % (Auto) 5.0 Eos % (Auto) 0.0 Baso % (Auto) 0.1 Neut # (Auto) 14.5 H Lymph # (Auto) 1.2 [place] # (Auto) 0.8 Eos # (Auto) 0.0 Baso # (Auto) 0.0 Neutrophils % (Manual) 91 H Band Neutrophils % 1 Lymphocytes % (Manual) 4 L Monocytes % (Manual) 4 Platelet Estimate Normal RBC Morphology Normal Sodium 141 Potassium 4.0 Chloride 98 Carbon Dioxide 25 Anion Gap 22 H BUN 20 Creatinine 1.0 Est GFR ( Amer) > 60 Est GFR (Non-Af Amer) > 60 Random Glucose 126 H Calcium 9.5 Total Bilirubin 0.7 AST 42 ALT 38 Alkaline Phosphatase 94 Total Protein 8.5 H Albumin 4.3 Globulin 4.1 H Albumin/Globulin Ratio 1.0 Lipase 47 Urine Color Yellow Urine Clarity Cloudy Urine pH 7.0 Ur Specific [place] 1.017 Urine Protein Negative Urine Glucose (UA) Neg Urine Ketones 20 Urine Blood Negative Urine Nitrate Negative Urine Bilirubin Negative Urine Urobilinogen 0.2-1.0 Ur Leukocyte Esterase Neg Urine RBC (Auto) < 1 Urine Microscopic WBC < 1 Urine Yeast (Budding) Few H Assessment & Plan - Assessment and Plan (Free Text) Assessment: 62 yo ,m, PMhx/o Asthma, HTN, Afib (06/2017) presents to ED c/o left sided flank pain which started today. Patient was found to have a 1mm stone and left sided hydronephrosis will keep for observation 1) Left flank pain - CT abdomen and pelvis: Show Acute left hydronephrosis with perinephric edema and obstructive calculi in left distal ureter measuring 1mm. - IVF @ 125 - Strain urine - flomax .4mg daily - Urology consulted 2) Leukocytosis with left shift - Afebrile - Most likely secondary to stress demargination - CBC: WBC: 16.6, Neut % 87.4, - F/U with chest x ray and blood culture results 3) Hx/o Atrial Fibrillation -1 episode of A fib 06/25/17 - asymptomatic today. Regular rate and rhythm -Continue Xarelto 20 mg QHS and diltiazem 4. Hyperlipidemia - C/W home meds Atorvastatin 20mg 5) DVT prophylaxis -Pt on Xarelto
[2017-11-18] MEDS ORDERED: Pneumococcal 23-Valent Vaccine IM ONE (19:01)
--- NOTE | 2017-11-18 19:34 | RAD ---
HISTORY: L flank pain COMPARISON: No prior. TECHNIQUE: Chest PA and lateral FINDINGS: LUNGS: No active pulmonary disease. PLEURA: No significant pleural effusion identified. No pneumothorax apparent. CARDIOVASCULAR: Normal. OSSEOUS STRUCTURES: No significant abnormalities. VISUALIZED UPPER ABDOMEN: Normal. OTHER FINDINGS: None. IMPRESSION: No active disease.
[2017-11-19] MEDS: Sodium Chloride 0.9% 1,000 ML IV SCH ×2 (01:19→08:49)
[2017-11-19] MEDS ORDERED: Oxycodone/Acetaminophen 5/325 mg Tab PO PRN (03:58)
--- NOTE | 2017-11-19 07:31 | CP.PCM.PN ---
Objective - Vital Signs/Intake and Output Vital Signs (last 24 hours): Temp Pulse Resp BP Pulse Ox 97.8 F 60 20 126/71 96 11/19/17 01:00 11/19/17 01:00 11/19/17 01:00 11/19/17 01:00 11/19/17 01:00 - Medications Medications: Current Medications Acetaminophen (Tylenol 325mg Tab) 650 mg PO Q4 PRN PRN Reason: Pain, Mild (1-3) Last Admin: 11/18/17 17:45 Dose: 650 mg Albuterol (Ventolin Hfa 90 Mcg/Actuation (8 G)) 2 puff IH Q4H PRN PRN Reason: Shortness of Breath Atorvastatin Calcium (Lipitor) 20 mg PO DAILY [facility] Last Admin: 11/18/17 23:48 Dose: 20 mg Diltiazem HCl (Cardizem Cd) 120 mg PO DAILY [facility] Home Med (Beclomethasone Dipropionate [Qvar 80 Mcg]) 1 puff IH Q12H [facility] Sodium Chloride (Sodium Chloride 0.9%) 1,000 mls @ 125 mls/hr IV .Q8H [facility] Stop: 11/19/17 16:02 Last Admin: 11/19/17 01:19 Dose: 125 mls/hr Ketorolac Tromethamine (Toradol) 30 mg IVP Q6 PRN PRN Reason: Pain, moderate (4-7) Last Admin: 11/18/17 22:51 Dose: 30 mg Oxycodone/Acetaminophen (Percocet 5/325 Mg Tab) 2 tab PO Q6 PRN PRN Reason: Pain, severe (8-10) Stop: 11/22/17 03:59 Rivaroxaban (Xarelto) 20 mg PO QPM [facility] PRN Reason: Protocol Last Admin: 11/18/17 20:48 Dose: 20 mg Tamsulosin HCl (Flomax) 0.4 mg PO DAILY [facility] Last Admin: 11/18/17 16:47 Dose: 0.4 mg - Labs Labs: 11/18/17 13:30 11/18/17 13:30
[2017-11-19 07:45] LABS: BASO % 0.2 % (0.0-2.0); EOS # 0.1 K/uL (0.0-0.7); EOS % 0.5 % (0.0-4.0); HEMOGLOBIN 13.1 g/dL (12.0-18.0); LYMPH # 1.8 K/uL (1.0-4.3); LYMPH % 17.3 % (20.0-40.0); MEAN CELL VOLUME 86.5 fl (80.0-94.0); MEAN CORPUSCULAR HEMOGLOBIN 29.6 pg (27.0-31.0); MEAN CORPUSCULAR HGB CONC 34.2 g/dL (33.0-37.0); MEAN PLATELET VOLUME 9.4 fl (7.2-11.7); MONO % 9.3 % (0.0-10.0); NEUT # 7.6 K/uL (1.8-7.0); NEUT % 72.7 % (50.0-75.0); RBC 4.42 Mil/uL (4.40-5.90); RED CELL DISTRIBUTION WIDTH 13.6 % (11.5-14.5); WHITE BLOOD COUNT 10.4 K/uL (4.8-10.8)
[2017-11-19 07:59] VITALS: BP 135/77; RESP 19; TEMP 98; O2SAT 98
[2017-11-19] MEDS ORDERED: diltiaZEM 120 mg/24 Hours CD Cap PO SCH (09:00)
[2017-11-19 11:07] VITALS: PULSE 60
--- NOTE | 2017-11-19 13:07 | CP.PCM.DIS ---
Provider - Provider Date of Admission: 11/18/17 15:46 Attending physician: Anna Danielle MD Time Spent in preparation of Discharge (in minutes): 30 Diagnosis - Discharge Diagnosis (1) Hydronephrosis, left Status: Acute (2) Renal colic on left side Status: Acute Hospital Course - Lab Results Lab Results: Most Recent Lab Values WBC 10.4 K/uL (4.8-10.8) 11/19/17 06:55 RBC 4.42 Mil/uL (4.40-5.90) 11/19/17 06:55 Hgb 13.1 g/dL (12.0-18.0) 11/19/17 06:55 Hct 38.2 % (35.0-51.0) 11/19/17 06:55 MCV 86.5 fl (80.0-94.0) 11/19/17 06:55 MCH 29.6 pg (27.0-31.0) 11/19/17 06:55 MCHC 34.2 g/dL (33.0-37.0) 11/19/17 06:55 RDW 13.6 % (11.5-14.5) 11/19/17 06:55 Plt Count 261 K/uL (130-400) 11/19/17 06:55 MPV 9.4 fl (7.2-11.7) 11/19/17 06:55 Neut % (Auto) 72.7 % (50.0-75.0) 11/19/17 06:55 Lymph % (Auto) 17.3 % (20.0-40.0) L 11/19/17 06:55 [place] % (Auto) 9.3 % (0.0-10.0) 11/19/17 06:55 Eos % (Auto) 0.5 % (0.0-4.0) 11/19/17 06:55 Baso % (Auto) 0.2 % (0.0-2.0) 11/19/17 06:55 Neut # (Auto) 7.6 K/uL (1.8-7.0) H 11/19/17 06:55 Lymph # (Auto) 1.8 K/uL (1.0-4.3) 11/19/17 06:55 [place] # (Auto) 1.0 K/uL (0.0-0.8) H 11/19/17 06:55 Eos # (Auto) 0.1 K/uL (0.0-0.7) 11/19/17 06:55 Baso # (Auto) 0.0 K/uL (0.0-0.2) 11/19/17 06:55 Neutrophils % (Manual) 91 % (42-75) H 11/18/17 13:30 Band Neutrophils % 1 % (0-2) 11/18/17 13:30 Lymphocytes % (Manual) 4 % (20-50) L 11/18/17 13:30 Monocytes % (Manual) 4 % (0-10) 11/18/17 13:30 Platelet Estimate Normal (NORMAL) 11/18/17 13:30 RBC Morphology Normal (NORMAL) 11/18/17 13:30 Sodium 141 mmol/l (132-148) 11/18/17 13:30 Potassium 4.0 MMOL/L (3.6-5.0) 11/18/17 13:30 Chloride 98 mmol/L (98-107) 11/18/17 13:30 Carbon Dioxide 25 mmol/L (22-30) 11/18/17 13:30 Anion Gap 22 (10-20) H 11/18/17 13:30 BUN 20 mg/dl (9-20) 11/18/17 13:30 Creatinine 1.0 mg/dl (0.8-1.5) 11/18/17 13:30 Est GFR ( Amer) > 60 11/18/17 13:30 Est GFR (Non-Af Amer) > 60 11/18/17 13:30 Random Glucose 126 mg/dL (75-110) H 11/18/17 13:30 Calcium 9.5 mg/dL (8.4-10.2) 11/18/17 13:30 Total Bilirubin 0.7 mg/dl (0.2-1.3) 11/18/17 13:30 AST 42 U/L (17-59) 11/18/17 13:30 ALT 38 U/L (21-72) 11/18/17 13:30 Alkaline Phosphatase 94 U/L (38-126) 11/18/17 13:30 Total Protein 8.5 G/DL (6.3-8.2) H 11/18/17 13:30 Albumin 4.3 g/dL (3.5-5.0) 11/18/17 13:30 Globulin 4.1 gm/dL (2.2-3.9) H 11/18/17 13:30 Albumin/Globulin Ratio 1.0 (1.0-2.1) 11/18/17 13:30 Lipase 47 U/L (23-300) 11/18/17 13:30 Urine Color Yellow (YELLOW) 11/18/17 13:30 Urine Clarity Cloudy (Clear) 11/18/17 13:30 Urine pH 7.0 (5.0-8.0) 11/18/17 13:30 Ur Specific [place] 1.017 (1.003-1.030) 11/18/17 13:30 Urine Protein Negative mg/dL (NEGATIVE) 11/18/17 13:30 Urine Glucose (UA) Neg mg/dL (Normal) 11/18/17 13:30 Urine Ketones 20 mg/dL (NEGATIVE) 11/18/17 13:30 Urine Blood Negative (NEGATIVE) 11/18/17 13:30 Urine Nitrate Negative (NEGATIVE) 11/18/17 13:30 Urine Bilirubin Negative (NEGATIVE) 11/18/17 13:30 Urine Urobilinogen 0.2-1.0 mg/dL (0.2-1.0) 11/18/17 13:30 Ur Leukocyte Esterase Neg [place]/uL (Negative) 11/18/17 13:30 Urine RBC (Auto) < 1 /hpf (0-3) 11/18/17 13:30 Urine Microscopic WBC < 1 /hpf (0-5) 11/18/17 13:30 Urine Yeast (Budding) Few /hpf (NEGATIVE) H 11/18/17 13:30 - Hospital Course Hospital Course: 62 yo male with pmhx of asthma, Afib (06/2017) presents to ED on 11/18/17 with left sided flank pain radiating to his left lower quadrant when he woke up on 11/18/17. He had a similar pain one week ago, but was not this intense. Describes pain as a 9/10, was able to urinate freely without any difficulties. Denies any burning with urination or blood in urine. Has never had a kidney stone in the past. Denies any fever, chills, nausea, or vomiting. Abdomen and pelvic CT on 11/18/17 shows Acute left hydronephrosis with perinephric edema and obstructive calculi in left distal ureter measuring 1mm. While admitted to inpatient, pt received pain medications, IVFs and flomax. Today, pt's reports pain has resolved, tolerating po fluids and urinating w/o difficulty. Pt has been afebrile and stable vitals. Pt is stable to discharge w/ percocet 5/325 mg po q6hr prn #15 and flomax 0.4 mg po daily #15 Medications on discharge: Percocet 5/325 mg po q6hr prn #15 (new medication) Flomax 0.4 mg po daily #15 (new medication) albuterol hfa 2 puffs prn qvar 8.7 gm aero. 2 puff bid diltiazem hcl 120 mg po daily colace 100 mg po tid multivitamin 1 tab po daily xarelto 20 mg po daily crestor 20 mg po daily Discharge Exam - Head Exam Head Exam: NORMAL INSPECTION - Eye Exam Eye Exam: Normal appearance - ENT Exam ENT Exam: Mucous Membranes Moist - Respiratory Exam Respiratory Exam: Clear to PA & Lateral, NORMAL BREATHING PATTERN. absent: Rales, Rhonchi, Wheezes, Respiratory Distress - Cardiovascular Exam Cardiovascular Exam: Irregular Rhythm, +S1, +S2 - GI/Abdominal Exam GI & Abdominal Exam: Normal Bowel Sounds, Soft. absent: Tenderness - Back Exam Back exam: absent: CVA tenderness (L), CVA tenderness (R) - Neurological Exam Neurological exam: Alert, Oriented x3 - Psychiatric Exam Psychiatric exam: Normal Affect, Normal Mood - Skin Skin Exam: Normal Color, Warm Discharge Plan - Discharge Medications Prescriptions: Oxycodone HCl/Acetaminophen [Oxycodone-Acetaminophen 5-325] 1 each PO Q6 PRN # 15 tablet PRN Reason: Pain, Severe (8-10) Tamsulosin [Flomax] 0.4 mg PO DAILY #14 cap - Follow Up Plan Condition: STABLE Disposition: HOME/ ROUTINE Instructions: Kidney Stones (DC), How to Strain Your Urine Additional Instructions: follow up with primary MD 1 week Return to ED you develop any worsening flank pain or develop fever, chills, nausea, vomiting or dizziness. Referrals: Marycarmen Ansari MD [Family Provider] -
== END 2017-11-19 15:00 | disposition home or self-care (01) ==
LOC: H.ER 12:10 → H.ERHOLD 15:46 → H.MEDSURG1 18:03
PROVIDERS: ADMIT Family Medicine Geriatric Medicine; ATTEND Family Medicine Geriatric Medicine
DX: N13.2 Hydronephrosis with renal and ureteral calculous obstruction (principal); N23 Unspecified renal colic; I48.91 Unspecified atrial fibrillation; D72.828 Other elevated white blood cell count; I10 Essential (primary) hypertension; E78.5 Hyperlipidemia, unspecified; J45.909 Unspecified asthma, uncomplicated; Z23 Encounter for immunization; Z79.01 Long term (current) use of anticoagulants; Z87.891 Personal history of nicotine dependence
CPT/HCPCS: 36415; 71046; 74176; 80053; 81003; 83690; 85025; 87040; 87086; 90732; 96374; 99284; G0009; G0378; J1885; J2270; J2405; J7040

== ENCOUNTER 2018-04-03 10:51 | Day surgery (SDC) | payer BC ==
--- NOTE | 2018-04-03 11:31 | CP.SDSHP ---
Same Day Surgery H & P - History Proposed Procedure: Right inguinal hernia repair with mesh Pre-Op Diagnosis: Right inguinal hernia - Previous Medical/Surgical History Cardiac: Arrhythmia (atrial fibrillation) Pulmonary: Asthma Endocrine/Metabolic: Other (HLD) Neuro: TIA/CVA (TIA in 1998) Pain: 0. No Pain Previous Surgical History: dental work/oral surgery - Allergies Allergies: Allergies cat dander Allergy (Verified 04/03/18 11:21) SHORTNESS OF BREATH oyster extract Allergy (Verified 04/03/18 11:21) NAUSEA ragweed pollen Allergy (Verified 04/03/18 11:21) SHORTNESS OF BREATH - Current Medications Current Medications: Diltiazem, Xarelto, Rouvostatin - Physical Exam General Appearance: NAD, AAOx3 Mental Status: Alert & Oriented x3 Neuro: WNL Heart: WNL Lungs: WNL GI: Other (Right ingunial Hernia present) - Impression Impression: 62 M with right inguinal hernia presents for right inguinal hernia repair Pt. Evaluated Today:Candidate for Anesthesia & Procedure: Yes - Date & Time Date: 04/03/18 Time: 11:54 Short Stay Discharge - Short Stay Discharge Admitting Diagnosis/Reason for Visit: K40.9 Disposition: HOME/ ROUTINE Medications: Ibuprofen [Motrin Tab] 600 mg PO TID PRN #60 tab PRN Reason: Pain, Moderate (4-7) oxyCODONE/Acetaminophen [Percocet 5/325 mg Tab] 1 tab PO Q4 PRN #12 tab PRN Reason: Pain, Moderate (4-7) Referrals: FAMILY PROVIDER,NO [Primary Care Provider] - Connie Robles MD [Staff Provider] - Additional Instructions (Diet, Activity): Take Percocet and Ibuprofen as prescribed for pain Resume home medications as previously prescribed No heavy lifting for 4-6 weeks keep area clean and dry May shower No soaking in tub, swimming or jacuzzi Follow up with Dr. Robles within 1-2 weeks Progress Note/Discharge Note with Instructions: 62M with PMH of asthma, atrial fibrillation, psoriasis, HLD presents with right inguinal hernia; s/p right inguinal hernia repair with mesh
[2018-04-03] MEDS ORDERED: Propofol 10 mg/ml Inj (20 ML) ONE (12:16)
[2018-04-03] MEDS ORDERED: Rocuronium 10 mg/ml (5 ml) ONE (12:17)
[2018-04-03] MEDS ORDERED: Midazolam 2 MG/2 ML VIAL ONE (12:17)
[2018-04-03] MEDS ORDERED: Succinylcholine 200 mg/10 ml Inj IV ONE (12:17)
[2018-04-03] MEDS ORDERED: ePHEDrine 50 mg/ml Inj ONE (12:17)
[2018-04-03] MEDS ORDERED: Lactated Ringer's 1,000 ML IV ONE ×3 (12:47→15:50)
--- NOTE | 2018-04-03 14:12 | PCM.SURG1 ---
Surgeon's Initial Post Op Note - Surgeon's Notes Surgeon: Dr. Robles Multimedia Authoring Specialist: Liliana PGY2 Type of Anesthesia: General Endo Anesthesia Administered By: Dr. Hilario Pre-Operative Diagnosis: Right inguinal hernia Operative Findings: Right indirect inguinal hernia Post-Operative Diagnosis: Right indirect inguinal hernia Operation Performed: Right indirect inguinal hernia repair with mesh Specimen/Specimens Removed: N/A Estimated Blood Loss: EBL {In ML}: 10 Blood Products Given: N/A Drains Used: No Drains Post-Op Condition: Good Date of Surgery/Procedure: 04/03/18 Time of Surgery/Procedure: 14:12
[2018-04-03] MEDS ORDERED: Oxycodone/Acetaminophen 5/325 mg Tab PO PRN (14:13)
[2018-04-03 16:11] VITALS: RESP 18
[2018-04-03 16:56] VITALS: O2SAT 97
[2018-04-03 19:04] VITALS: BP 125/73; PULSE 58; TEMP 98.4
--- NOTE | 2018-04-08 09:21 | OP ---
PROCEDURE DATE: 04/03/2018 SURGEON: Connie Robles MD [employer] DRIVER: Kris Ford DO ANESTHESIA: General. ANESTHESIOLOGIST: Luis Hyde MD PREOPERATIVE DIAGNOSIS: Right inguinal hernia. POSTOPERATIVE DIAGNOSIS: Right inguinal hernia. PROCEDURE: Right inguinal hernia repair with mesh. DESCRIPTION OF OPERATION: With the patient in the supine position under adequate general anesthesia, the right groin was prepped and draped in the usual sterile manner. A transverse incision was made over the right upper groin crease and taken down through the subcutaneous tissue. The external oblique layer was identified and cleared, and the external oblique aponeurosis was then opened from the external inguinal ring to the internal inguinal ring. Fatty protrusion was noted throughout and the spermatic cord was dissected off the inguinal floor as it passed over the pubic tubercle and the spermatic cord was elevated for a [place] drain. No gross blood, and examination of the cord revealed that the cord itself was quite narrow, and a fat-containing hernia sac was dissected off the underlying cord structures and then easily reduced into a defect at the lateral aspect of the internal inguinal ring. A size medium ProLoop plug was then positioned in the defect behind the reduced sac and positioned well up beneath the upper leaf of the transversalis fascia and sutured in position with two stitches of 2-0 Prolene. The flat portion of the mesh was then positioned beneath the spermatic cord with the tails positioned laterally and trimmed to approximate the floor. It was sutured medially to the area of the pubic tubercle and then inferiorly to the shelving edge of the ligament and superiorly to the transversalis fascia with sutures laterally encompassing the previously placed sutures from the plug. The inguinal canal was then examined for hemostasis, and the external oblique was reapproximated with with running suture of 0 Vicryl, subcutaneous layers with 3-0 Vicryl and closure was performed with 4-0 Monocryl subcuticular suture and Dermabond. The patient tolerated the procedure well and transferred to the recovery room in stable condition. Estimated blood loss for the procedure was 10 mL. Connie Robles MD [id number]
== END 2018-04-03 20:05 | disposition home or self-care (01) ==
LOC: H.OPSURG 10:51
PROVIDERS: ATTEND Specialist
DX: K40.90 Unilateral inguinal hernia, without obstruction or gangrene, not specified as recurrent (principal); I48.91 Unspecified atrial fibrillation; J45.909 Unspecified asthma, uncomplicated; E78.5 Hyperlipidemia, unspecified; I10 Essential (primary) hypertension; Z86.73 Personal history of transient ischemic attack (TIA), and cerebral infarction without residual deficits
CPT/HCPCS: 49505; C1781; J0330; J0690; J1170; J2001; J2250; J2704; J2765; J3010; J7030; J7120